=== PATIENT | male | born 1960 | race Caucasian/White ===

== ENCOUNTER 2016-02-05 13:00 | Outpatient (RCR) | payer BC | END 2016-04-20 | disposition home or self-care (01) | LOC: PT | DX: S22.42XD Multiple fractures of ribs, left side, subsequent encounter for fracture with routine healing (principal); S27.0XXD Traumatic pneumothorax, subsequent encounter; S36.039D Unspecified laceration of spleen, subsequent encounter; W55.22XD Struck by cow, subsequent encounter; Y92.73 Farm field as the place of occurrence of the external cause ==

== ENCOUNTER → 2021-05-19 | Outpatient (CLI) | payer BC | LOC: LAB 18:49 | DX: T69.021A Immersion foot, right foot, initial encounter (principal) ==

== ENCOUNTER → 2021-06-08 | Outpatient (CLI) | payer BC | LOC: RAD 13:04 | DX: M19.071 Primary osteoarthritis, right ankle and foot (principal) ==

== ENCOUNTER → 2021-06-29 | Outpatient (CLI) | payer BC ==
[2021-06-29 12:00] LABS: POTASSIUM 4.6 mmol/L (3.5-5.1)
== END ==
LOC: LAB 11:21
PROVIDERS: Family Medicine
DX: I10 Essential (primary) hypertension (principal); B35.1 Tinea unguium

== ENCOUNTER → 2021-06-30 | Outpatient (CLI) | payer BC ==
[2021-07-01 12:16] LABS: ALBUMIN 4.2 g/dL (3.4-4.8)
[2021-07-01 12:19] LABS: TOTAL PROTEIN 7.1 g/dL (6.2-8.1)
[2021-07-01 12:21] LABS: TOTAL BILIRUBIN 0.7 mg/dL (0.2-1.2)
[2021-07-01 12:24] LABS: DIRECT BILIRUBIN 0.2 mg/dL (0.0-0.5)
== END ==
LOC: LAB 10:03
PROVIDERS: Family Medicine
DX: E11.9 Type 2 diabetes mellitus without complications (principal); T14.8XXD Other injury of unspecified body region, subsequent encounter; I10 Essential (primary) hypertension

== ENCOUNTER → 2021-10-08 | Outpatient (CLI) | payer BC | LOC: LAB 08:56 | DX: I83.015 Varicose veins of right lower extremity with ulcer other part of foot (principal); T14.8XXD Other injury of unspecified body region, subsequent encounter; E11.9 Type 2 diabetes mellitus without complications; I83.90 Asymptomatic varicose veins of unspecified lower extremity ==

== ENCOUNTER 2021-11-23 12:58 | Inpatient (IN) | payer BC ==
[~2021-11-23] VITALS: Ht 10 cm; Wt 98.6 kg
[2021-11-23 13:49] LABS: BASO # 0.03 K/mm3 (0.02-0.10); EOS # 0.06 K/mm3 (0.04-0.40); EOS % 0.7 % (0.0-4.0); HEMOGLOBIN 12.9 g/dL (13.5-18.0); LYMPH# 0.69 K/mm3 (1.50-4.00); MEAN CELL VOLUME 100 fl (78-100); MEAN CORPUSCULAR HEMOGLOBIN 34 pg (27-31); MEAN CORPUSCULAR HGB CONC 34 g/dL (33-37); MEAN PLATELET VOLUME 9.1 fl (7.4-10.4); MONO # 0.92 K/mm3 (0.20-0.80); NEU # 7.48 K/mm3 (1.40-6.50); PLATELET COUNT 232 K/mm3 (130-400); RED BLOOD COUNT 3.82 M/mm3 (4.20-5.60); RED CELL DISTRIBUTION WIDTH 11.5 % (11.5-14.5); WHITE BLOOD COUNT 9.2 K/mm3 (4.8-10.8)
[2021-11-23 13:57] LABS: POTASSIUM 4.5 mmol/L (3.5-5.1)
[2021-11-23 13:58] LABS: CALCIUM 9.6 mg/dL (8.3-10.5)
[2021-11-23 14:01] LABS: TOTAL BILIRUBIN 0.8 mg/dL (0.2-1.2)
[2021-11-23] MEDS ORDERED: PIOGLITAZONE HC15 MG PO (14:41)
[2021-11-23] MEDS ORDERED: METFORMIN HYD1000 MG PO (14:41)
[2021-11-23] MEDS ORDERED: LISINOPRIL20 MG PO (14:42)
[2021-11-23] MEDS ORDERED: ASPIRIN E.C. 8181 MG PO (14:42)
[2021-11-23] MEDS ORDERED: HYGROTON 2525 MG/TAB PO (14:42)
[2021-11-23] MEDS ORDERED: FAMOTIDINE20 MG PO (14:43)
[2021-11-23 15:57] VITALS: BP 133/91
[2021-11-23 18:28] VITALS: BP 119/71
[2021-11-23 22:10] VITALS: BP 119/74
[2021-11-24 02:01] VITALS: BP 105/67
[2021-11-24 05:41] VITALS: BP 110/70
[2021-11-24 06:27] LABS: BASO # 0.02 K/mm3 (0.02-0.10); EOS % 2.4 % (0.0-4.0); HEMATOCRIT 33.8 % (42.0-52.0); HEMOGLOBIN 11.7 g/dL (13.5-18.0); MEAN CELL VOLUME 98 fl (78-100); MEAN CORPUSCULAR HEMOGLOBIN 34 pg (27-31); MEAN CORPUSCULAR HGB CONC 35 g/dL (33-37); MEAN PLATELET VOLUME 8.8 fl (7.4-10.4); MONO # 0.98 K/mm3 (0.20-0.80); NEU # 5.83 K/mm3 (1.40-6.50); PLATELET COUNT 228 K/mm3 (130-400); RED BLOOD COUNT 3.44 M/mm3 (4.20-5.60); RED CELL DISTRIBUTION WIDTH 11.7 % (11.5-14.5); WHITE BLOOD COUNT 8.3 K/mm3 (4.8-10.8)
[2021-11-24 07:09] LABS: ALBUMIN 3.4 g/dL (3.4-4.8); POTASSIUM 3.7 mmol/L (3.5-5.1)
[2021-11-24 07:11] LABS: CALCIUM 8.8 mg/dL (8.3-10.5)
[2021-11-24 07:12] LABS: TOTAL PROTEIN 5.9 g/dL (6.2-8.1)
[2021-11-24 07:14] LABS: TOTAL BILIRUBIN 0.6 mg/dL (0.2-1.2)
[2021-11-24 09:48] VITALS: BP 153/72
[2021-11-24 14:57] VITALS: BP 157/75
[2021-11-24 17:02] VITALS: BP 128/83
[2021-11-24 21:47] VITALS: BP 132/71
[2021-11-25 02:05] VITALS: BP 123/72
[2021-11-25 05:28] VITALS: BP 126/81
[2021-11-25 07:31] LABS: BASO # 0.04 K/mm3 (0.02-0.10); EOS # 0.19 K/mm3 (0.04-0.40); EOS % 2.4 % (0.0-4.0); HEMATOCRIT 34.2 % (42.0-52.0); HEMOGLOBIN 11.7 g/dL (13.5-18.0); MEAN CELL VOLUME 99 fl (78-100); MEAN CORPUSCULAR HEMOGLOBIN 34 pg (27-31); MEAN CORPUSCULAR HGB CONC 34 g/dL (33-37); MONO # 0.82 K/mm3 (0.20-0.80); NEU # 5.72 K/mm3 (1.40-6.50); PLATELET COUNT 237 K/mm3 (130-400); RED BLOOD COUNT 3.45 M/mm3 (4.20-5.60); RED CELL DISTRIBUTION WIDTH 11.6 % (11.5-14.5); WHITE BLOOD COUNT 8.1 K/mm3 (4.8-10.8)
[2021-11-25 10:41] VITALS: BP 114/70
[2021-11-25 13:22] VITALS: BP 109/70
[2021-11-25 17:05] VITALS: BP 103/67
[2021-11-25 21:35] VITALS: BP 128/79
[2021-11-26 02:18] VITALS: BP 131/74
[2021-11-26 05:54] VITALS: BP 157/82
[2021-11-26 10:07] VITALS: BP 134/82
[2021-11-26] MEDS ORDERED: BACTRIM DS TAB1 EACH PO (10:40)
[2021-11-26] MEDS ORDERED: CIPRO500 M1 PO (10:40)
[2021-11-26] MEDS ORDERED: MUPIROCIN22 TP (10:41)
[2021-11-26] MEDS ORDERED: GABAPENTIN100 MG PO (16:23)
== END 2021-11-26 12:35 | disposition home or self-care (01) | DRG 603 ==
LOC: ED 12:58 → MED/SURG 15:23
PROVIDERS: Physician Assistant; ADMIT Nurse Practitioner
DX: L03.115 Cellulitis of right lower limb (principal); E87.1 Hypo-osmolality and hyponatremia; I10 Essential (primary) hypertension; E11.9 Type 2 diabetes mellitus without complications; Z20.822 Contact with and (suspected) exposure to COVID-19; Z79.82 Long term (current) use of aspirin; Z79.84 Long term (current) use of oral hypoglycemic drugs
CPT/HCPCS: J1650; J2543; J3370; J7050

== ENCOUNTER → 2022-04-07 | Outpatient (CLI) | payer BC ==
[~2022-04-07] MED LIST: ASPIRIN E.C. 8181 MG PO; BACTRIM DS TAB1 EACH PO; CIPRO500 M1 PO; FAMOTIDINE20 MG PO; GABAPENTIN100 MG PO; HYGROTON 2525 MG/TAB PO; LISINOPRIL20 MG PO; METFORMIN HYD1000 MG PO; MUPIROCIN22 TP; PIOGLITAZONE HC15 MG PO
[2022-04-07 10:04] LABS: ALBUMIN 4.2 g/dL (3.4-4.8); POTASSIUM 4.6 mmol/L (3.5-5.1)
[2022-04-07 10:05] LABS: CALCIUM 10.6 mg/dL (8.3-10.5)
[2022-04-07 10:07] LABS: TOTAL PROTEIN 6.9 g/dL (6.2-8.1)
[2022-04-07 10:08] LABS: TOTAL BILIRUBIN 0.9 mg/dL (0.2-1.2)
== END ==
LOC: LAB 09:33
PROVIDERS: Family Medicine
DX: I10 Essential (primary) hypertension (principal); E11.9 Type 2 diabetes mellitus without complications; I83.015 Varicose veins of right lower extremity with ulcer other part of foot

== ENCOUNTER → 2022-10-19 | Outpatient (CLI) | payer BC ==
[2022-10-19 10:57] LABS: ALBUMIN 4.1 g/dL (3.4-4.8)
[2022-10-19 11:00] LABS: TOTAL PROTEIN 6.5 g/dL (6.2-8.1)
[2022-10-19 11:02] LABS: TOTAL BILIRUBIN 0.8 mg/dL (0.2-1.2)
[2022-10-19 11:05] LABS: DIRECT BILIRUBIN 0.3 mg/dL (0.0-0.5)
== END ==
LOC: LAB 10:37
PROVIDERS: Family Medicine
DX: Z00.00 Encounter for general adult medical examination without abnormal findings (principal); Z12.11 Encounter for screening for malignant neoplasm of colon; I10 Essential (primary) hypertension; E11.9 Type 2 diabetes mellitus without complications; E78.00 Pure hypercholesterolemia, unspecified; I83.015 Varicose veins of right lower extremity with ulcer other part of foot

== ENCOUNTER → 2023-01-10 | Outpatient (CLI) | payer BC ==
[2023-01-10 09:18] LABS: CALCIUM 9.6 mg/dL (8.3-10.5)
== END ==
LOC: LAB 08:49
PROVIDERS: Family Medicine
DX: E11.621 Type 2 diabetes mellitus with foot ulcer (principal); I10 Essential (primary) hypertension; I83.015 Varicose veins of right lower extremity with ulcer other part of foot

== ENCOUNTER → 2023-05-02 | Outpatient (CLI) | payer BC | LOC: LAB 11:47 | DX: I83.015 Varicose veins of right lower extremity with ulcer other part of foot (principal); E11.9 Type 2 diabetes mellitus without complications ==

== ENCOUNTER → 2023-07-29 | Outpatient (CLI) | payer BC ==
[2023-07-29 15:26] LABS: HEMATOCRIT 30.7 % (42.0-52.0); HEMOGLOBIN 10.5 g/dL (13.5-18.0); MEAN PLATELET VOLUME 8.6 fl (7.4-10.4); RED BLOOD COUNT 3.13 M/mm3 (4.20-5.60); RED CELL DISTRIBUTION WIDTH 12.6 % (11.5-14.5); WHITE BLOOD COUNT 3.8 K/mm3 (4.8-10.8)
[2023-07-29 15:34] LABS: CALCIUM 9.6 mg/dL (8.3-10.5)
[2023-07-29 15:35] LABS: TOTAL PROTEIN 6.3 g/dL (6.2-8.1)
[2023-07-29 15:37] LABS: TOTAL BILIRUBIN 0.4 mg/dL (0.2-1.2)
== END ==
LOC: LAB 15:11
PROVIDERS: Family Medicine
DX: I10 Essential (primary) hypertension (principal); E11.42 Type 2 diabetes mellitus with diabetic polyneuropathy

== ENCOUNTER → 2023-09-19 | Outpatient (CLI) | payer BC | LOC: LAB 16:43 | DX: C61 Malignant neoplasm of prostate (principal) ==

== ENCOUNTER → 2023-09-23 | Outpatient (CLI) | payer BC | LOC: RAD 16:25 | DX: Z01.818 Encounter for other preprocedural examination (principal) ==

== ENCOUNTER → 2023-09-24 | Outpatient (CLI) | payer BC ==
[2023-09-24 08:16] LABS: HEMATOCRIT 34.7 % (42.0-52.0); HEMOGLOBIN 12.3 g/dL (13.5-18.0); MEAN PLATELET VOLUME 8.6 fl (7.4-10.4); RED BLOOD COUNT 3.59 M/mm3 (4.20-5.60); RED CELL DISTRIBUTION WIDTH 11.5 % (11.5-14.5); WHITE BLOOD COUNT 3.8 K/mm3 (4.8-10.8)
[2023-09-24 08:27] LABS: ALBUMIN 4.2 g/dL (3.4-4.8)
[2023-09-24 08:28] LABS: CALCIUM 10.3 mg/dL (8.3-10.5)
[2023-09-24 08:29] LABS: TOTAL PROTEIN 6.8 g/dL (6.2-8.1)
[2023-09-24 08:31] LABS: TOTAL BILIRUBIN 0.4 mg/dL (0.2-1.2)
[2023-09-24 09:07] LABS: URINE APPEARANCE CLEAR (CLEAR); URINE COLOR YELLOW (YELLOW)
[2023-09-24 09:08] LABS: URINE BILIRUBIN NEGATIVE (NEGATIVE); URINE BLOOD NEGATIVE (NEGATIVE); URINE GLUCOSE NEGATIVE (NEGATIVE); URINE KETONE NEGATIVE (NEGATIVE); URINE LEUKOCYTE ESTERASE NEGATIVE (NEGATIVE); URINE NITRATE NEGATIVE (NEGATIVE); URINE PROTEIN(semi-quant) NEGATIVE (NEGATIVE); URINE WBC 0-1 /hpf (0-3)
== END ==
LOC: LAB 07:56
PROVIDERS: Family Medicine
DX: Z01.818 Encounter for other preprocedural examination (principal); B35.1 Tinea unguium